=== PATIENT | female | born 1940 | race Two or more races ===

== ENCOUNTER 2018-01-21 08:20 | Outpatient (CLI) | payer OTHER ==
[~2018-01-21 08:20] MED LIST: CATAFLAM50 MG PO; DIOVAN320 MG PO; NORTUSS-EX LIQ118 ML PO; NORVASC5 MG PO; ORPH100T PO; TOPROL XL50 M1 PO; ZITHROMAX200 MG PO
== END 2018-01-21 08:48 | disposition home or self-care (01) ==
LOC: LAB 08:20
DX: I10 Essential (primary) hypertension (principal); I65.23 Occlusion and stenosis of bilateral carotid arteries; I70.0 Atherosclerosis of aorta

== ENCOUNTER 2021-10-14 08:55 | Outpatient (CLI) | payer OTHER | END 2021-10-14 08:58 | disposition home or self-care (01) | LOC: LAB 08:55 | DX: D64.89 Other specified anemias (principal); I10 Essential (primary) hypertension; E63.8 Other specified nutritional deficiencies; M06.9 Rheumatoid arthritis, unspecified; E03.8 Other specified hypothyroidism; E78.00 Pure hypercholesterolemia, unspecified; R79.89 Other specified abnormal findings of blood chemistry; E83.30 Disorder of phosphorus metabolism, unspecified; G40.209 Localization-related (focal) (partial) symptomatic epilepsy and epileptic syndromes with complex partial seizures, not intractable, without status epilepticus; F01.51 Vascular dementia, unspecified severity, with behavioral disturbance; G30.0 Alzheimer's disease with early onset; R26.0 Ataxic gait; R40.4 Transient alteration of awareness ==

== ENCOUNTER 2023-11-27 10:56 | Emergency (ER) | payer OTHER ==
[~2023-11-27] VITALS: Ht 152.4 cm; Wt 68.0 kg
[2023-11-27] MEDS ORDERED: IRBESARTAN300 MG PO (13:26)
[2023-11-27] MEDS ORDERED: XARELTO20 MG PO (13:26)
[2023-11-27] MEDS ORDERED: ATORVASTATIN CA20 MG PO (13:26)
[2023-11-27] MEDS ORDERED: METFORMIN HCL500 M4 PO (13:27)
[2023-11-27] MEDS ORDERED: DOXAZOSIN MESYLA4 MG PO (13:27)
[2023-11-27] MEDS ORDERED: LAMOTRIGINE25 M1 PO (13:27)
[2023-11-27] MEDS ORDERED: CYMBALTA20 MG PO (13:28)
[2023-11-27] MEDS ORDERED: PERSANTINE25 MG PO (13:28)
== END 2023-11-27 18:24 | disposition home or self-care (01) ==
LOC: ER 10:56
DX: S82.402A Unspecified fracture of shaft of left fibula, initial encounter for closed fracture (principal); W18.39XA Other fall on same level, initial encounter; Y93.89 Activity, other specified; Y92.89 Other specified places as the place of occurrence of the external cause; Z88.2 Allergy status to sulfonamides; S80.02XA Contusion of left knee, initial encounter; M17.12 Unilateral primary osteoarthritis, left knee

== ENCOUNTER 2023-12-08 08:09 | Outpatient (CLI) | payer OTHER ==
[~2023-12-08 08:09] MED LIST changes: +ATORVASTATIN CA20 MG PO; +CYMBALTA20 MG PO; +DOXAZOSIN MESYLA4 MG PO; +IRBESARTAN300 MG PO; +LAMOTRIGINE25 M1 PO; +METFORMIN HCL500 M4 PO; +PERSANTINE25 MG PO; +XARELTO20 MG PO
== END 2023-12-08 08:15 | disposition home or self-care (01) ==
LOC: RAD 08:09
PROVIDERS: ATTEND Orthopaedic Surgery
DX: S82.62XA Displaced fracture of lateral malleolus of left fibula, initial encounter for closed fracture (principal)

== ENCOUNTER 2024-05-17 10:36 | Outpatient (CLI) | payer OTHER | END 2024-05-17 10:38 | disposition home or self-care (01) | LOC: RAD 10:36 | PROVIDERS: ATTEND Orthopaedic Surgery | DX: S82.62XD Displaced fracture of lateral malleolus of left fibula, subsequent encounter for closed fracture with routine healing (principal) ==

== ENCOUNTER 2024-05-29 12:11 | Outpatient (CLI) | payer OTHER | END 2024-05-29 12:13 | disposition home or self-care (01) | LOC: NUCLEAR 12:11 | PROVIDERS: ATTEND Orthopaedic Surgery | DX: I87.2 Venous insufficiency (chronic) (peripheral) (principal) ==

== ENCOUNTER 2024-07-26 10:46 | Outpatient (CLI) | payer OTHER ==
[2024-07-26 11:47] LABS: HEMATOCRIT 33.1 % (36.0-45.00); HEMOGLOBIN 11.1 g/dL (12.0-15.00); MEAN CORPUSCULAR HEMOGLOBIN 29.8 pg (27.00-32.0); MEAN CORPUSCULAR HGB CONC 33.5 g/dl (32.0-36.0); PLATELET COUNT 210 K/uL (150-450); RED BLOOD COUNT 3.72 M/uL (4.00-6.00)
[2024-07-26 11:57] LABS: PH,URINE 6.5 (5.0-8.0); URINE APPEARANCE Clear; URINE BILIRRUBIN Negative (NEGATIVE); URINE BLOOD Negative; URINE COLOR Yellow; URINE GLUCOSE Negative (NEGATIVE); URINE KETONE Trace (NEGATIVE); URINE LEUKOCYTE Trace; URINE NITRATE Negative; URINE PROTEIN Negative (NEGATIVE); URINE UROBILINOGEN 0.2 E.U./dl
[2024-07-26 11:58] LABS: URINE BACTERIA 162.5 uL (0.0-1933); URINE EPITHELIAL CELLS 4.7 uL (0.0-38.8); URINE RBC 12.5 uL (0.0-20.8); URINE WBC 16.3 uL (0.0-23.2)
[2024-07-26 12:12] LABS: PROTHROMBIN TIME 10.9 SECONDS (9.0-11.5)
[2024-07-26 12:16] LABS: COL EPI 73 SECONDS (82-175)
[2024-07-26 12:46] LABS: ALBUMIN 3.6 gm/dL (3.4-5.0); BILIRUBIN TOTAL 0.69 mg/dL (0.3-1.2); CALCIUM 9.9 mg/dL (8.5-10.1); GFR 52.69; GLOBULINA 3.1 G/DL (2.4-3.5); POTASSIUM 4.17 mEq/L (3.5-5.1); TOTAL PROTEIN 6.7 gm/dL (6.4-8.2)
== END 2024-07-26 10:58 | disposition home or self-care (01) ==
LOC: LAB 10:46
PROVIDERS: ATTEND Orthopaedic Surgery
DX: D64.9 Anemia, unspecified (principal); D68.8 Other specified coagulation defects; N39.0 Urinary tract infection, site not specified; Z22.322 Carrier or suspected carrier of Methicillin resistant Staphylococcus aureus; E11.9 Type 2 diabetes mellitus without complications; I10 Essential (primary) hypertension; Z76.89 Persons encountering health services in other specified circumstances

== ENCOUNTER 2025-02-28 09:11 | Emergency (ER) | payer OTHER ==
[~2025-02-28] VITALS: Ht 157.5 cm; Wt 69.9 kg
[2025-02-28] MEDS ORDERED: ASPIRIN 325 MG TABLET.EC PO STA (09:24)
[2025-02-28] MEDS ORDERED: ASPIRIN 325 MG TABLET.EC PO ONE (09:27)
[2025-02-28 10:11] LABS: HEMATOCRIT 34.8 % (36.0-45.00); HEMOGLOBIN 11.6 g/dL (12.0-15.00); MEAN CELL VOLUME 91.9 fL (80.00-100.00); MEAN CORPUSCULAR HEMOGLOBIN 30.6 pg (27.00-32.0); MEAN CORPUSCULAR HGB CONC 33.3 g/dl (32.0-36.0); PLATELET COUNT 203 K/uL (150-450); RED BLOOD COUNT 3.78 M/uL (4.00-6.00); RED CELL DISTRIBUTION WIDTH 13.3 % (11.5-14.5)
[2025-02-28 10:31] LABS: PARTIAL THROMBOPLASTIN TIME 27.6 SECONDS (22.0-34.0); PROTHROMBIN TIME 10.9 SECONDS (9.0-11.5)
[2025-02-28 10:37] LABS: CALCIUM 9.8 mg/dL (8.5-10.1); CREATININE SERUM 0.93 mg/dL (0.55-1.02); GFR 57.16; POTASSIUM 4.25 mEq/L (3.5-5.1)
== END 2025-02-28 13:10 | disposition home or self-care (01) ==
LOC: ER 09:12
PROVIDERS: Emergency Medicine
DX: R53.81 Other malaise (principal); R07.9 Chest pain, unspecified; I10 Essential (primary) hypertension; Z88.2 Allergy status to sulfonamides; Z91.018 Allergy to other foods